=== PATIENT | female | born 1990 | race Caucasian/White ===

== ENCOUNTER 2018-02-17 22:46 | Inpatient (IN) | payer OTHER, MEDICAID ==
[~2018-02-17] VITALS: Ht 165.1 cm; Wt 68.0 kg
[~2018-02-17 22:46] MED LIST: BUPR150T73 PO; FERR325T16 PO; IBUP-1222 PO; OXYC-302 PO; SENN-92 PO
[2018-02-17 23:28] VITALS: BP 104/64
[2018-02-17] MEDS ORDERED: MISOPROSTOL 200 MCG TABLET ONE (23:50)
[2018-02-17] MEDS ORDERED: OXYTOCIN 30U/ 0.9% NaCL 500ML 500 ML ONE (23:50)
[2018-02-17] MEDS ORDERED: NEWBORN KIT ONE (23:50)
[2018-02-17] MEDS ORDERED: LIDOCAINE 1%, 50ML ONE (23:50)
[2018-02-17] MEDS ORDERED: OXYTOCIN 30U/ 0.9% NaCL 500ML 500 ML IV ONE (23:51)
[2018-02-17] MEDS ORDERED: D5%-LACTATED RINGERS 1,000 ML IV SCH (23:51)
[2018-02-18] MEDS ORDERED: METOCLOPRAMIDE 5 MG/ML, 2ML IVPush PRN
[2018-02-18] MEDS ORDERED: SODIUM CITRATE/CITRIC ACID 30 ML UDC PO PRN
[2018-02-18] MEDS ORDERED: TERBUTALINE 1 MG/ML, 1ML IVPush PRN ×2
[2018-02-18] MEDS ORDERED: CALCIUM CARBONATE 500 MG TAB.CHEW PO PRN
[2018-02-18] MEDS ORDERED: FENTANYL PF 100 MCG/2ML IV PRN
[2018-02-18] MEDS ORDERED: FENTANYL PF 100 MCG/2ML IVPush PRN
[2018-02-18] MEDS ORDERED: ONDANSETRON 2MG/ML, 2ML IVPush PRN
[2018-02-18] MEDS ORDERED: OXYTOCIN 30U/ 0.9% NaCL 500ML 500 ML IV PRN (00:03)
[2018-02-18 00:25] LABS: BASOPHILS # (AUTO) 0.12 x10^3/uL (0-0.1); BASOPHILS % (AUTO) 1 % (0-1); EOSINOPHILS # (AUTO) 0.11 x10^3/uL (0-0.4); EOSINOPHILS % (AUTO) 1 % (1-7); LYMPHOCYTES # (AUTO) 3.38 x10^3/uL (1-3.4); LYMPHOCYTES % (AUTO) 23 % (22-44); MD NO; MEAN CORPUSCULAR HEMOGLOBIN 23.3 pg (27.0-34.8); MEAN CORPUSCULAR HGB CONC 32.4 g/dL (32.4-35.8); MEAN CORPUSCULAR VOLUME 71.9 fL (80-100); MEAN PLATELET VOLUME 7.5 fL (7.4-10.4); MONOCYTES % (AUTO) 6 % (2-9); NEUTROPHILS # (AUTO) 10.15 x10^3/uL (1.8-6.8); NEUTROPHILS % (AUTO) 70 % (42-75); PLATELET COUNT 399 x10^3/uL (130-400); RED BLOOD COUNT 4.29 x10^6/uL (3.82-5.3)
[2018-02-18] MEDS: LACTATED RINGERS 1,000 ML IV SCH ×2 (00:43→04:40)
[2018-02-18] MEDS ORDERED: VALA500T4 PO (01:23)
[2018-02-18] MEDS ORDERED: FENTANYL PF 100 MCG/2ML ONE (04:47)
[2018-02-18] MEDS ORDERED: OXYTOCIN 30U/ 0.9% NaCL 500ML 500 ML ONE (05:29)
[2018-02-18] MEDS ORDERED: IBUPROFEN 600 MG TABLET ONE (05:29)
[2018-02-18] MEDS ORDERED: MISOPROSTOL 200 MCG TABLET PR PRN (05:30)
[2018-02-18] MEDS ORDERED: ACETAMINOPHEN 325 MG TABLET PO PRN ×2 (05:30)
[2018-02-18] MEDS: OXYTOCIN 30U/ 0.9% NaCL 500ML 500 ML IV SCH ×2 (05:32→15:27)
[2018-02-18] MEDS: IBUPROFEN 600 MG TABLET PO PRN ×3 (05:32→19:52)
[2018-02-18 07:20] VITALS: BP 112/72
[2018-02-18] MEDS: PRENATAL VIT/IRON/FA 1 EACH TABLET PO SCH (07:56)
[2018-02-18] MEDS: DOCUSATE 100 MG CAPSULE PO PRN ×2 (07:56→19:52)
[2018-02-18] MEDS: HYDROcodone/APAP 5/325 TABLET PO PRN ×4 (07:57→22:53)
[2018-02-18 11:36] VITALS: BP 112/73
[2018-02-18 12:44] VITALS: BP 124/81
[2018-02-18 13:00] LABS: BASOPHILS # (AUTO) 0.03 x10^3/uL (0-0.1); BASOPHILS % (AUTO) 0 % (0-1); EOSINOPHILS # (AUTO) 0.07 x10^3/uL (0-0.4); EOSINOPHILS % (AUTO) 0 % (1-7); LYMPHOCYTES # (AUTO) 3.01 x10^3/uL (1-3.4); LYMPHOCYTES % (AUTO) 18 % (22-44); MD NO; MEAN CORPUSCULAR HEMOGLOBIN 23.5 pg (27.0-34.8); MEAN CORPUSCULAR HGB CONC 32.3 g/dL (32.4-35.8); MEAN CORPUSCULAR VOLUME 72.8 fL (80-100); MEAN PLATELET VOLUME 7.4 fL (7.4-10.4); MONOCYTES # (AUTO) 1.15 x10^3/uL (0.2-0.8); MONOCYTES % (AUTO) 7 % (2-9); NEUTROPHILS % (AUTO) 75 % (42-75); PLATELET COUNT 396 x10^3/uL (130-400); RED BLOOD COUNT 4.12 x10^6/uL (3.82-5.3); RED CELL DISTRIBUTION WIDTH 15.5 % (9.6-15.2)
[2018-02-18 16:00] VITALS: BP 120/76
[2018-02-18 19:35] VITALS: BP 112/74
[2018-02-19] VITALS: BP 111/65
[2018-02-19] MEDS: OXYTOCIN 30U/ 0.9% NaCL 500ML 500 ML IV SCH ×2 (01:27→11:27)
[2018-02-19] MEDS: HYDROcodone/APAP 5/325 TABLET PO PRN (04:02)
[2018-02-19 04:15] VITALS: BP 103/68
[2018-02-19] MEDS: BUPROPION SR 150 MG TABLET PO SCH ×2 (06:46→07:27)
[2018-02-19] MEDS ORDERED: IBUP-1222 PO (07:04)
[2018-02-19] MEDS ORDERED: HYDR-3240 PO (07:04)
[2018-02-19 07:15] VITALS: BP 109/68
[2018-02-19] MEDS: DOCUSATE 100 MG CAPSULE PO PRN (07:52)
[2018-02-19] MEDS: IBUPROFEN 600 MG TABLET PO PRN (07:52)
[2018-02-19] MEDS: PRENATAL VIT/IRON/FA 1 EACH TABLET PO SCH (07:52)
== END 2018-02-19 12:00 | disposition home or self-care (01) | DRG 775 ==
LOC: LDOP 22:46 → LDIP 02-18 00:01 → MERGE 02-18 00:01 → 2NW 02-18 07:14
PROVIDERS: ADMIT Obstetrics & Gynecology; ATTEND Obstetrics & Gynecology
PROC: 10E0XZZ Delivery of Products of Conception, External Approach (ICD-10-PCS; principal; 2018-02-18)
PROC: 0HQ9XZZ Repair Perineum Skin, External Approach (ICD-10-PCS; 2018-02-18)
DX: O42.92 Full-term premature rupture of membranes, unspecified as to length of time between rupture and onset of labor (principal); O70.0 First degree perineal laceration during delivery; Z37.0 Single live birth; Z3A.38 38 weeks gestation of pregnancy; O99.344 Other mental disorders complicating childbirth; F32.9 Major depressive disorder, single episode, unspecified
CPT/HCPCS: 36415; 85025; 86850; 86900; 89060; G0378; J3010; J2590; J7120; Q0114

== ENCOUNTER 2019-07-17 03:26 | Emergency (ER) | payer MEDICAID ==
[~2019-07-17] VITALS: Ht 165.1 cm; Wt 67.0 kg
[~2019-07-17 03:26] MED LIST changes: +HYDR-3240 PO; +VALA500T4 PO
[2019-07-17] MEDS ORDERED: MORPHINE SULFATE 4 MG/ML, 1ML IVPush ONE (04:00)
[2019-07-17] MEDS ORDERED: ONDANSETRON 2MG/ML, 2ML IVPush ONE (04:00)
[2019-07-17] MEDS ORDERED: ONDANSETRON 2MG/ML, 2ML ONE (04:16)
[2019-07-17] MEDS ORDERED: MORPHINE SULFATE 4 MG/ML, 1ML ONE (04:16)
[2019-07-17 04:22] LABS: BASOPHILS # (AUTO) 0.02 x10^3/uL (0-0.1); BASOPHILS % (AUTO) 0 % (0-1); EOSINOPHILS # (AUTO) 0.13 x10^3/uL (0-0.4); EOSINOPHILS % (AUTO) 2 % (1-7); LYMPHOCYTES # (AUTO) 2.37 x10^3/uL (1-3.4); LYMPHOCYTES % (AUTO) 32 % (22-44); MD NO; MEAN CORPUSCULAR HEMOGLOBIN 28.5 pg (27.0-34.8); MEAN CORPUSCULAR HGB CONC 33.2 g/dL (32.4-35.8); MEAN CORPUSCULAR VOLUME 85.9 fL (80-100); MEAN PLATELET VOLUME 7.9 fL (7.4-10.4); MONOCYTES # (AUTO) 0.52 x10^3/uL (0.2-0.8); MONOCYTES % (AUTO) 7 % (2-9); NEUTROPHILS # (AUTO) 4.47 x10^3/uL (1.8-6.8); NEUTROPHILS % (AUTO) 60 % (42-75); PLATELET COUNT 322 x10^3/uL (130-400); RED BLOOD COUNT 4.47 x10^6/uL (3.82-5.3); RED CELL DISTRIBUTION WIDTH 13.3 % (9.6-15.2)
[2019-07-17 04:29] LABS: ALBUMIN 3.2 g/dL (3.4-5.0); ANION GAP 6 mmol/L (5-15); CALCIUM 7.9 mg/dL (8.5-10.1); CHLORIDE 109 mmol/L (98-107); CREATININE 0.84 mg/dL (0.55-1.02)
--- NOTE | 2019-07-17 04:48 | NUR ---
PT RESTING COMFORTABLY. MONITOR IN PLACE. SPOUSE AT BEDSIDE.
--- NOTE | 2019-07-17 05:28 | NUR ---
PT UNABLE TO GIVE UA AT THIS TIME.
[2019-07-17 06:38] VITALS: BP 92/59
[2019-07-17 06:38] LABS: HCG UR SG 1.028 (1.003-1.030); MICROSCOPIC AUTO
[2019-07-17 06:45] LABS: CULTURE INDICATED? YES
--- NOTE | 2019-07-17 06:56 | NUR ---
REPORT RECEIVED FROM JACKSON CISNEROS. PT RESTING ON [facility] W/ CALL LIGHT IN [facility].
--- NOTE | 2019-07-17 07:41 | NUR ---
Patient given discharge instructions and they have confirmed that they understand the instructions. Patient ambulatory with steady gait. Addendum: 07/17/19 at 0742 by TRINI *Patient wheeled out in wheelchair.
== END 2019-07-17 07:42 | disposition home or self-care (01) ==
LOC: ED 06:31
DX: N83.02 Follicular cyst of left ovary (principal); R11.2 Nausea with vomiting, unspecified; R19.7 Diarrhea, unspecified
CPT/HCPCS: 36415; 76830; 80048; 81001; 81025; 82040; 85025; 87086; 96374; 96375; 99284; J2270; J2405

== ENCOUNTER 2019-07-23 10:06 | Day surgery (SDC) | payer MEDICAID ==
[~2019-07-23] VITALS: Ht 165.1 cm; Wt 66.0 kg
[2019-07-23] MEDS ORDERED: LACTATED RINGERS 1,000 ML IV SCH (10:44)
[2019-07-23 10:51] LABS: HCG UR SG 1.024 (1.003-1.030)
[2019-07-23 11:02] VITALS: BP 109/60
[2019-07-23] MEDS ORDERED: EPINEPHRINE 1 MG/ML, 1ML ONE (11:34)
[2019-07-23] MEDS ORDERED: BUPIVACAINE/PF 0.25% ONE (11:34)
[2019-07-23] MEDS ORDERED: MIDAZOLAM 1 MG/ML, 2ML ONE (12:47)
[2019-07-23] MEDS ORDERED: FENTANYL PF 250 MCG/5ML ONE (12:47)
[2019-07-23] MEDS ORDERED: HYDROmorphone 2 MG/ML, 1ML IVPush PRN (13:30)
[2019-07-23] MEDS ORDERED: PROMETHAZINE 25 MG/ML, 1ML IV PRN (13:30)
[2019-07-23] MEDS ORDERED: ACETAMINOPHEN 325 MG TABLET PO PRN (13:30)
[2019-07-23] MEDS ORDERED: FENTANYL PF 100 MCG/2ML IV PRN (13:30)
[2019-07-23] MEDS ORDERED: MEPERIDINE/PF 25MG/ML,1ML IVPush PRN (13:30)
[2019-07-23] MEDS ORDERED: hydrALAzine 20 MG/ML, 1ML IV PRN (13:30)
[2019-07-23] MEDS ORDERED: OXYcodone 5 MG/5 ML ORAL.SOL UDC PO PRN (13:30)
[2019-07-23] MEDS ORDERED: SUGAMMADEX 200 MG/2 ML IVPush ONE (13:38)
[2019-07-23] MEDS ORDERED: PROPOFOL 10 MG/ML, 20ML ONE (13:38)
[2019-07-23] MEDS ORDERED: LIDOCAINE-MPF 2% ,5ML ONE (13:38)
[2019-07-23] MEDS ORDERED: DEXAMETHASONE 4 MG/ML, 1ML ONE (13:38)
[2019-07-23] MEDS ORDERED: ONDANSETRON 2MG/ML, 2ML ONE (13:38)
[2019-07-23] MEDS ORDERED: KETOROLAC 30 MG/1 ML ONE (13:38)
[2019-07-23] MEDS ORDERED: CEFOTETAN PMX 2GM/50ML 50 ML ONE (13:38)
[2019-07-23] MEDS ORDERED: ROCURONIUM 10MG/ML,5ML ONE (13:38)
[2019-07-23] MEDS ORDERED: SILVER NITRATE STICK TP ONE ×2 (13:59→14:00)
[2019-07-23] MEDS ORDERED: BUPIVACAINE/PF-EPI 0.25% 1:200K INFIL ONE (14:00)
[2019-07-23] MEDS ORDERED: FENTANYL PF 100 MCG/2ML ONE (14:23)
[2019-07-23] MEDS ORDERED: OXYcodone 5 MG/5 ML ORAL.SOL UDC ONE (14:23)
[2019-07-23] MEDS ORDERED: PROMETHAZINE 25 MG/ML, 1ML ONE (14:23)
[2019-07-23] MEDS ORDERED: ACETAMINOPHEN 650 MG/20.3 ML UDC ONE (14:50)
[2019-07-23] MEDS ORDERED: MEPERIDINE/PF 25MG/ML,1ML ONE (14:50)
[2019-07-23] MEDS ORDERED: ACETAMINOPHEN 325 MG TABLET ONE (14:50)
[2019-07-23] MEDS ORDERED: IBUPROFEN 600 MG TABLET PO SCH (16:00)
== END 2019-07-23 16:30 | disposition home or self-care (01) ==
LOC: OUT 10:06
PROVIDERS: ATTEND Obstetrics & Gynecology
DX: Z30.2 Encounter for sterilization (principal); N83.02 Follicular cyst of left ovary; N92.0 Excessive and frequent menstruation with regular cycle; N94.6 Dysmenorrhea, unspecified; R30.0 Dysuria; N30.10 Interstitial cystitis (chronic) without hematuria; F32.9 Major depressive disorder, single episode, unspecified
CPT/HCPCS: 52260; 58558; 58670; 81025; 88112; 88305; J0171; J1100; J1885; J2175; J2250; J2405; J2704; J3010; J3490; J7120

== ENCOUNTER 2019-12-20 11:30 | Day surgery (SDC) | payer MEDICAID ==
[~2019-12-20] VITALS: Ht 165.1 cm; Wt 68.5 kg
[2019-12-20] MEDS ORDERED: MORPHINE SULFATE 4 MG/ML, 1ML ONE (12:08)
[2019-12-20] MEDS ORDERED: ONDANSETRON 2MG/ML, 2ML ONE ×2 (12:08→19:05)
[2019-12-20 12:25] LABS: BASOPHILS # (AUTO) 0.03 x10^3/uL (0-0.1); BASOPHILS % (AUTO) 0 % (0-1); EOSINOPHILS # (AUTO) 0.11 x10^3/uL (0-0.4); EOSINOPHILS % (AUTO) 1 % (1-7); LYMPHOCYTES # (AUTO) 2.05 x10^3/uL (1-3.4); LYMPHOCYTES % (AUTO) 23 % (22-44); MD NO; MEAN CORPUSCULAR HEMOGLOBIN 27.5 pg (27.0-34.8); MEAN CORPUSCULAR HGB CONC 32.5 g/dL (32.4-35.8); MEAN PLATELET VOLUME 7.4 fL (7.4-10.4); MONOCYTES # (AUTO) 0.75 x10^3/uL (0.2-0.8); MONOCYTES % (AUTO) 8 % (2-9); NEUTROPHILS # (AUTO) 6.11 x10^3/uL (1.8-6.8); NEUTROPHILS % (AUTO) 68 % (42-75); PLATELET COUNT 383 x10^3/uL (130-400); RED BLOOD COUNT 4.59 x10^6/uL (3.82-5.3); RED CELL DISTRIBUTION WIDTH 13.2 % (9.6-15.2)
[2019-12-20] MEDS ORDERED: SODIUM CHLORIDE FLUSH 10ML SYR IVF ONE (12:30)
[2019-12-20] MEDS ORDERED: ONDANSETRON 2MG/ML, 2ML IVPush ONE (12:30)
[2019-12-20] MEDS ORDERED: MORPHINE SULFATE 4 MG/ML, 1ML IVPush PRN (12:30)
[2019-12-20 12:37] LABS: CHLORIDE 111 mmol/L (98-107)
[2019-12-20 12:45] LABS: MICROSCOPIC INDICATED
[2019-12-20 12:48] LABS: ALANINE AMINOTRANSFERASE 16 U/L (12-78); ALBUMIN 3.7 g/dL (3.4-5.0); ALKALINE PHOSPHATASE 74 U/L (45-117); ANION GAP 6 mmol/L (5-15); BILIRUBIN,TOTAL 0.9 mg/dL (0.2-1.0); CALCIUM 8.6 mg/dL (8.5-10.1); CREATININE 0.81 mg/dL (0.55-1.02); TOTAL PROTEIN 7.1 g/dL (6.4-8.2)
[2019-12-20] MEDS ORDERED: OMNIPAQUE 350 MG/ML, 100ML BOTTLE ONE (14:04)
[2019-12-20] MEDS ORDERED: AMPICILLIN/SULBACTAM 3 GM in SODIUM CHLORIDE 0.9% 100 ML IV ONE (14:30)
[2019-12-20] MEDS ORDERED: METOCLOPRAMIDE 5 MG/ML, 2ML IVPush ONE (14:30)
[2019-12-20] MEDS ORDERED: METOCLOPRAMIDE 5 MG/ML, 2ML ONE (14:32)
[2019-12-20] MEDS ORDERED: D5%-0.45% NACL 1,000 ML IV ONE (14:40)
[2019-12-20] MEDS ORDERED: SODIUM CHLORIDE FLUSH 10ML SYR IVF PRN (15:00)
[2019-12-20] MEDS ORDERED: ONDANSETRON 2MG/ML, 2ML IVPush PRN ×2 (15:00→19:30)
[2019-12-20] MEDS ORDERED: HYDROmorphone 1 MG/ML, 1ML INJ IVPush PRN ×2 (15:00→19:30)
[2019-12-20] MEDS ORDERED: BUPIVACAINE/EPI 0.5% 1:200K ONE (15:21)
--- NOTE | 2019-12-20 15:29 | NUR ---
break RN note: pt assisted to bathroom and back into bed, bp and spo2 monitors in place. pt medicated per emar with reglan for nausea and unasyn for appendicitis. pt is a&o, resps even and unlabored. per EDMD Geeta, no blood cx indicated. report given back to primary RN Phong.
[2019-12-20] MEDS ORDERED: SERT100T32 PO (15:42)
[2019-12-20] MEDS ORDERED: HYDR-2995 PO (15:42)
[2019-12-20 17:36] VITALS: BP 94/60
[2019-12-20] MEDS ORDERED: MIDAZOLAM 1 MG/ML, 2ML ONE (18:56)
[2019-12-20] MEDS ORDERED: FENTANYL PF 250 MCG/5ML ONE (18:56)
[2019-12-20] MEDS ORDERED: DEXAMETHASONE 4 MG/ML, 1ML ONE ×2 (18:59→19:05)
[2019-12-20] MEDS ORDERED: SUGAMMADEX 200 MG/2 ML IVPush ONE (19:05)
[2019-12-20] MEDS ORDERED: SUCCINYLCHOLINE 20 MG/ML, 10ML ONE (19:05)
[2019-12-20] MEDS ORDERED: CEFOTETAN 2 GM ONE (19:05)
[2019-12-20] MEDS ORDERED: OXYcodone 5 MG/5 ML ORAL.SOL UDC PO PRN (19:30)
[2019-12-20] MEDS ORDERED: DIPHENHYDRAMINE 50 MG/ML, 1ML IVPush PRN (19:30)
[2019-12-20] MEDS ORDERED: PROMETHAZINE 25 MG/ML, 1ML IVPush PRN (19:30)
[2019-12-20] MEDS ORDERED: hydrALAzine 20 MG/ML, 1ML IV PRN (19:30)
[2019-12-20] MEDS ORDERED: BUPIVACAINE/PF-EPI 0.5% 1:200K INFIL ONE (19:30)
[2019-12-20] MEDS ORDERED: EPHEDRINE 50 MG/ML, 1ML IVPush PRN (19:30)
[2019-12-20] MEDS ORDERED: DIAZEPAM 5 MG/ML, 2ML IVPush PRN (19:30)
[2019-12-20] MEDS ORDERED: ACETAMINOPHEN 325 MG TABLET PO PRN (19:30)
[2019-12-20] MEDS ORDERED: MIDAZOLAM 1 MG/ML, 2ML IV PRN (19:30)
[2019-12-20] MEDS ORDERED: LABETALOL 5MG/ML, 20ML IV PRN (19:30)
[2019-12-20] MEDS ORDERED: PROMETHAZINE 12.5 MG SUPP PR PRN (19:30)
[2019-12-20] MEDS ORDERED: MEPERIDINE/PF 25MG/0.5ML IVPush PRN (19:30)
[2019-12-20] MEDS ORDERED: ALBUTEROL SULFATE 2.5 MG/3 ML NPPB PRN (19:30)
[2019-12-20] MEDS ORDERED: KETOROLAC 30 MG/1 ML ONE (20:08)
[2019-12-20] MEDS ORDERED: MEPERIDINE/PF 25MG/ML,1ML ONE (20:10)
[2019-12-20] MEDS: FENTANYL PF 100 MCG/2ML IV PRN ×3 (20:15→20:43)
[2019-12-20] MEDS ORDERED: OXYcodone 5 MG/5 ML ORAL.SOL UDC ONE (20:30)
[2019-12-20] MEDS ORDERED: KETOROLAC 30 MG/1 ML IVPush ONE (20:30)
[2019-12-20] MEDS ORDERED: FENTANYL PF 100 MCG/2ML ONE (20:37)
[2019-12-20] MEDS ORDERED: OXYC5TAB3 PO (21:40)
[2019-12-20] MEDS ORDERED: ONDA8TAB9 PO (21:41)
== END 2019-12-20 22:30 | disposition home or self-care (01) ==
LOC: OUT 12:43 → ED 12:43 → EDIP 14:40 → UNDOADMIN 14:40 → 4NE 17:10 → EDIP 17:10 → OUT 22:30 → UNDODISIN 22:30
PROVIDERS: ATTEND Emergency Medicine
DX: K35.30 Acute appendicitis with localized peritonitis, without perforation or gangrene (principal); Z11.59 Encounter for screening for other viral diseases; F12.10 Cannabis abuse, uncomplicated; Z79.1 Long term (current) use of non-steroidal anti-inflammatories (NSAID); Z79.891 Long term (current) use of opiate analgesic; Z79.899 Other long term (current) drug therapy; Z88.8 Allergy status to other drugs, medicaments and biological substances; Z98.51 Tubal ligation status; Z90.79 Acquired absence of other genital organ(s); Z90.721 Acquired absence of ovaries, unilateral; Z98.890 Other specified postprocedural states
CPT/HCPCS: 36415; 44970; 74177; 80053; 81001; 83690; 84703; 85025; 87086; 87635; 88304; J0295; J0330; J1100; J1885; J2175; J2250; J2270; J2405; J2765; J3010; J3490; Q9967; G0378

== ENCOUNTER 2020-02-18 15:10 | Emergency (ER) | payer MEDICAID, OTHER ==
[~2020-02-18] VITALS: Ht 165.1 cm; Wt 73.0 kg
[~2020-02-18 15:10] MED LIST changes: +HYDR-2995 PO; +ONDA8TAB9 PO; +OXYC5TAB3 PO; +SERT100T32 PO
[2020-02-18 15:19] VITALS: BP 108/68
[2020-02-18] MEDS ORDERED: IBUPROFEN 200 MG TABLET PO ONE (16:00)
[2020-02-18] MEDS ORDERED: DIAZEPAM 5 MG TABLET PO ONE (16:00)
[2020-02-18] MEDS ORDERED: DIAZEPAM 5 MG TABLET ONE (16:00)
[2020-02-18] MEDS ORDERED: IBUPROFEN 200 MG TABLET ONE (16:01)
== END 2020-02-18 17:44 | disposition home or self-care (01) ==
LOC: ED 17:35
DX: S39.012A Strain of muscle, fascia and tendon of lower back, initial encounter (principal); Z90.89 Acquired absence of other organs; V49.09XA Driver injured in collision with other motor vehicles in nontraffic accident, initial encounter; Y93.89 Activity, other specified; Y92.488 Other paved roadways as the place of occurrence of the external cause; Y99.8 Other external cause status
CPT/HCPCS: 72072; 72110; 99284